=== PATIENT | male | born 1990 | race Caucasian/White ===

== ENCOUNTER 2018-08-07 12:19 | Emergency (ER) | payer MEDICAID ==
[~2018-08-07] VITALS: Ht 200.7 cm; Wt 99.8 kg
[~2018-08-07 12:19] MED LIST: CLIN150 PO; Crutch1 EACH MISC; DIVA500EC PO; HYDR1TAB94 PO; Norco 5-325 Ta1 EACH PO; PHENERGAN25 MG PR; PROM25 PO; QUET100 PO
[2018-08-07] MEDS ORDERED: Augmentin 875-1 EACH PO (12:53)
== END 2018-08-07 13:12 | disposition home or self-care (01) ==
LOC: ER 12:19
DX: S01.451A Open bite of right cheek and temporomandibular area, initial encounter (principal); W54.0XXA Bitten by dog, initial encounter; Z87.891 Personal history of nicotine dependence
CPT/HCPCS: 12013; 99282-25